=== PATIENT | female | born 1980 | race Caucasian/White ===

== ENCOUNTER 2017-10-21 22:49 | Emergency (ER) | payer SELFPAY ==
[~2017-10-21] VITALS: Ht 170.2 cm; Wt 55.6 kg
[2017-10-21] MEDS ORDERED: SODIUM CHLORIDE FLUSH 10ML SYR IVF ONE (23:30)
[2017-10-21] MEDS ORDERED: SODIUM CHLORIDE 0.9% 1,000ML IV ONE (23:30)
[2017-10-22] MEDS ORDERED: KETOROLAC 30 MG/1 ML ONE (00:33)
[2017-10-22 00:39] LABS: BASOPHILS # (AUTO) 0.03 x10^3/uL (0-0.1); BASOPHILS % (AUTO) 0 % (0-1); EOSINOPHILS % (AUTO) 2 % (1-7); LYMPHOCYTES # (AUTO) 1.45 x10^3/uL (1-3.4); LYMPHOCYTES % (AUTO) 11 % (22-44); MD NO; MEAN CORPUSCULAR HEMOGLOBIN 25.4 pg (27.0-34.8); MEAN CORPUSCULAR HGB CONC 32.8 g/dL (32.4-35.8); MEAN CORPUSCULAR VOLUME 77.4 fL (80-100); MEAN PLATELET VOLUME 7.1 fL (7.4-10.4); MONOCYTES % (AUTO) 8 % (2-9); NEUTROPHILS % (AUTO) 78 % (42-75); PLATELET COUNT 446 x10^3/uL (130-400); RED BLOOD COUNT 4.41 x10^6/uL (3.82-5.3); RED CELL DISTRIBUTION WIDTH 15.7 % (9.6-15.2)
[2017-10-22 00:51] LABS: ALANINE AMINOTRANSFERASE 19 U/L (12-78); ALBUMIN 2.6 g/dL (3.4-5.0); ANION GAP 9 mmol/L (5-15); CALCIUM 8.6 mg/dL (8.5-10.1); CHLORIDE 97 mmol/L (98-107); CREATININE 1.17 mg/dL (0.55-1.02)
[2017-10-22 00:56] LABS: ALKALINE PHOSPHATASE 142 U/L (45-117); BILIRUBIN,TOTAL 0.4 mg/dL (0.2-1.0); TOTAL PROTEIN 7.5 g/dL (6.4-8.2)
[2017-10-22] MEDS: KETOROLAC 30 MG/1 ML IVPush ONE ×2 (00:58→03:03)
[2017-10-22 01:07] LABS: CULTURE INDICATED? YES; MICROSCOPIC INDICATED
[2017-10-22] MEDS ORDERED: CEFTRIAXONE PMX 1GM/50ML 50 ML IVPB ONE (01:30)
[2017-10-22] MEDS ORDERED: CEFTRIAXONE PMX 1GM/50ML 50 ML ONE (01:36)
[2017-10-22 02:38] VITALS: BP 105/57
[2017-10-22] MEDS ORDERED: OXYC10TA6 PO (03:04)
== END 2017-10-22 03:27 | disposition home or self-care (01) ==
LOC: ED 23:59
DX: N39.0 Urinary tract infection, site not specified (principal); N13.2 Hydronephrosis with renal and ureteral calculous obstruction; N23 Unspecified renal colic
CPT/HCPCS: 36415; 74018; 74176; 76770; 80053; 81001; 83690; 84703; 85025; 87077; 87086; 96361; 96365; 96375; 99285; J0696; J1885; J7030; 87186

== ENCOUNTER 2017-10-25 10:36 | Inpatient (IN) | payer MEDICAID, OTHER ==
[~2017-10-25] VITALS: Ht 152.4 cm; Wt 65.0 kg
[~2017-10-25 10:36] MED LIST: OXYC10TA6 PO
[2017-10-25 11:34] LABS: BASOPHILS # (AUTO) 0.04 x10^3/uL (0-0.1); BASOPHILS % (AUTO) 0 % (0-1); EOSINOPHILS # (AUTO) 0.27 x10^3/uL (0-0.4); EOSINOPHILS % (AUTO) 2 % (1-7); LYMPHOCYTES # (AUTO) 1.69 x10^3/uL (1-3.4); LYMPHOCYTES % (AUTO) 14 % (22-44); MD NO; MEAN CORPUSCULAR HEMOGLOBIN 25.3 pg (27.0-34.8); MEAN CORPUSCULAR HGB CONC 33.2 g/dL (32.4-35.8); MEAN CORPUSCULAR VOLUME 76.4 fL (80-100); MEAN PLATELET VOLUME 6.9 fL (7.4-10.4); MONOCYTES # (AUTO) 1.11 x10^3/uL (0.2-0.8); MONOCYTES % (AUTO) 9 % (2-9); NEUTROPHILS # (AUTO) 9.17 x10^3/uL (1.8-6.8); NEUTROPHILS % (AUTO) 75 % (42-75); PLATELET COUNT 726 x10^3/uL (130-400); RED BLOOD COUNT 4.22 x10^6/uL (3.82-5.3)
[2017-10-25 11:39] LABS: ALANINE AMINOTRANSFERASE 29 U/L (12-78); ALBUMIN 2.6 g/dL (3.4-5.0); ANION GAP 7 mmol/L (5-15); CALCIUM 8.8 mg/dL (8.5-10.1); CHLORIDE 99 mmol/L (98-107); CREATININE 1.04 mg/dL (0.55-1.02)
[2017-10-25 11:42] LABS: ALKALINE PHOSPHATASE 174 U/L (45-117); BILIRUBIN,TOTAL 0.3 mg/dL (0.2-1.0); TOTAL PROTEIN 7.5 g/dL (6.4-8.2)
[2017-10-25] MEDS ORDERED: SODIUM CHLORIDE 0.9% 1,000ML IVBOLUS ONE (13:30)
[2017-10-25] MEDS ORDERED: KETOROLAC 30 MG/1 ML IVPush ONE (13:30)
[2017-10-25] MEDS ORDERED: SODIUM CHLORIDE FLUSH 10ML SYR IVF ONE (13:30)
[2017-10-25] MEDS ORDERED: ONDANSETRON 2MG/ML, 2ML IVPush ONE (13:30)
[2017-10-25] MEDS ORDERED: KETOROLAC 30 MG/1 ML ONE ×2 (13:44→16:29)
[2017-10-25] MEDS ORDERED: ONDANSETRON 2MG/ML, 2ML ONE ×2 (13:44→16:28)
[2017-10-25 14:51] LABS: CULTURE INDICATED? YES; MICROSCOPIC INDICATED
[2017-10-25] MEDS ORDERED: CEFTRIAXONE PMX 1GM/50ML 50 ML IVPB ONE (15:00)
[2017-10-25] MEDS ORDERED: CEFTRIAXONE 1,000 MG in SODIUM CHLORIDE 0.9% 50 ML IVPB ONE (15:00)
[2017-10-25] MEDS ORDERED: CEFTRIAXONE PMX 1GM/50ML 50 ML ONE (15:08)
[2017-10-25 15:15] LABS: HCG UR SG 1.015 (1.003-1.030)
[2017-10-25] MEDS ORDERED: MIDAZOLAM 1 MG/ML, 2ML ONE (15:37)
[2017-10-25] MEDS ORDERED: FENTANYL PF 250 MCG/5ML ONE (15:37)
[2017-10-25] MEDS ORDERED: PROPOFOL 10 MG/ML, 20ML ONE (15:38)
[2017-10-25] MEDS ORDERED: ROCURONIUM 10 MG/ML,10ML ONE (15:39)
[2017-10-25] MEDS ORDERED: NEOSTIGMINE 1 MG/ML, 10ML ONE (15:40)
[2017-10-25] MEDS ORDERED: SODIUM CHLORIDE 0.9% PF 10ML ONE (15:41)
[2017-10-25] MEDS ORDERED: CEFAZOLIN 1,000 MG ONE ×2 (15:41)
[2017-10-25] MEDS ORDERED: SUCCINYLCHOLINE 20 MG/ML, 10ML ONE (15:43)
[2017-10-25] MEDS ORDERED: ONDANSETRON 2MG/ML, 2ML IVPush PRN ×2 (16:00)
[2017-10-25] MEDS ORDERED: HYDROmorphone 1 MG/ML, 1ML IV PRN (16:00)
[2017-10-25] MEDS ORDERED: OXYcodone 5 MG/5 ML ORAL.SOL UDC PO PRN (16:00)
[2017-10-25] MEDS ORDERED: POLYETHYLENE GLYCOL 17 GM PACKET PO PRN (16:00)
[2017-10-25] MEDS ORDERED: ACETAMINOPHEN 325 MG TABLET PO PRN (16:00)
[2017-10-25] MEDS ORDERED: LABETALOL 5MG/ML, 20ML IV PRN (16:00)
[2017-10-25] MEDS ORDERED: morphine SULFATE 10 MG/ML, 1ML IV PRN (16:00)
[2017-10-25] MEDS ORDERED: PROMETHAZINE 25 MG/ML, 1ML IV PRN (16:00)
[2017-10-25] MEDS ORDERED: hydrALAzine 20 MG/ML, 1ML IVPush PRN (16:00)
[2017-10-25] MEDS ORDERED: PROMETHAZINE 12.5 MG SUPP PR PRN (16:00)
[2017-10-25] MEDS ORDERED: morphine SULFATE 10 MG/ML, 1ML IVPush PRN (16:00)
[2017-10-25] MEDS ORDERED: hydrALAzine 20 MG/ML, 1ML IV PRN (16:00)
[2017-10-25] MEDS ORDERED: MEPERIDINE/PF 25MG/0.5ML IVPush PRN (16:00)
[2017-10-25] MEDS ORDERED: OMNIPAQUE 350 MG/ML, 50 ML BOTTLE IV ONE (16:10)
[2017-10-25] MEDS ORDERED: CEFTRIAXONE 1,000 MG ONE (16:18)
[2017-10-25] MEDS ORDERED: DEXAMETHASONE 4 MG/ML, 1ML ONE ×2 (16:28)
[2017-10-25] MEDS ORDERED: OMNIPAQUE 350 MG/ML, 50 ML BOTTLE INJ ONE (16:36)
[2017-10-25] MEDS ORDERED: ACETAMINOPHEN 650 MG/20.3 ML UDC ONE (16:52)
[2017-10-25] MEDS ORDERED: FENTANYL PF 100 MCG/2ML ONE (16:52)
[2017-10-25] MEDS ORDERED: PROMETHAZINE 25 MG/ML, 1ML ONE (16:52)
[2017-10-25] MEDS ORDERED: OXYcodone 5 MG/5 ML ORAL.SOL UDC ONE (16:53)
[2017-10-25] MEDS ORDERED: ACETAMINOPHEN 325 MG TABLET ONE (16:53)
[2017-10-25] MEDS: SODIUM CHLORIDE 0.9% 1,000 ML IV SCH ×2 (17:00→23:46)
[2017-10-25] MEDS ORDERED: CEFTRIAXONE 2 GM in SODIUM CHLORIDE 0.9% 50 ML IV SCH (17:00)
[2017-10-25] MEDS: FENTANYL PF 100 MCG/2ML IV PRN ×2 (17:07→17:13)
[2017-10-25 22:05] VITALS: BP 98/45
[2017-10-25] MEDS: HYDROcodone/APAP 5/325 TABLET PO PRN (22:29)
[2017-10-26] VITALS: BP 98/60
[2017-10-26 03:54] VITALS: BP 95/61
[2017-10-26] MEDS: SODIUM CHLORIDE 0.9% 1,000 ML IV SCH ×2 (05:48→14:52)
[2017-10-26] MEDS: HYDROcodone/APAP 5/325 TABLET PO PRN ×3 (05:48→14:52)
[2017-10-26 05:54] LABS: CHLORIDE 108 mmol/L (98-107)
[2017-10-26 05:57] LABS: BASOPHILS % (AUTO) 0 % (0-1); EOSINOPHILS # (AUTO) 0.01 x10^3/uL (0-0.4); EOSINOPHILS % (AUTO) 0 % (1-7); LYMPHOCYTES # (AUTO) 0.88 x10^3/uL (1-3.4); LYMPHOCYTES % (AUTO) 12 % (22-44); MD NO; MEAN CORPUSCULAR HEMOGLOBIN 25.5 pg (27.0-34.8); MEAN CORPUSCULAR VOLUME 77.3 fL (80-100); MEAN PLATELET VOLUME 7.1 fL (7.4-10.4); MONOCYTES # (AUTO) 0.28 x10^3/uL (0.2-0.8); MONOCYTES % (AUTO) 4 % (2-9); NEUTROPHILS # (AUTO) 6.42 x10^3/uL (1.8-6.8); NEUTROPHILS % (AUTO) 85 % (42-75); PLATELET COUNT 581 x10^3/uL (130-400); RED BLOOD COUNT 3.64 x10^6/uL (3.82-5.3); RED CELL DISTRIBUTION WIDTH 15.7 % (9.6-15.2)
[2017-10-26 06:07] LABS: % IRON SATURATION 6 % (20-55); ALANINE AMINOTRANSFERASE 36 U/L (12-78); ALBUMIN 2.3 g/dL (3.4-5.0); ALKALINE PHOSPHATASE 171 U/L (45-117); ANION GAP 7 mmol/L (5-15); BILIRUBIN,TOTAL 0.1 mg/dL (0.2-1.0); CREATININE 0.81 mg/dL (0.55-1.02); IRON LEVEL 13 mcg/dL (50-170); TOTAL IRON BINDING CAPACITY 216 mcg/dL (250-450); TOTAL PROTEIN 6.7 g/dL (6.4-8.2)
[2017-10-26 07:27] VITALS: BP 94/54
[2017-10-26 12:17] VITALS: BP 105/52
[2017-10-26] MEDS ORDERED: OXYcodone/APAP 5/325MG TABLET PO PRN (17:30)
[2017-10-26] MEDS: FERROUS SULFATE 325 MG TABLET PO SCH (18:26)
[2017-10-26] MEDS: CEFTRIAXONE 2 GM in DEXTROSE 5% 50 ML IV SCH (18:26)
[2017-10-26 18:33] VITALS: BP 95/57
[2017-10-26] MEDS: OXYcodone IR 5MG TABLET PO PRN (22:55)
[2017-10-26] MEDS ORDERED: ACYCLOVIR 200 MG CAPSULE PO SCH ×2 (23:00→23:30)
[2017-10-26] MEDS: ACYCLOVIR 400 MG TABLET PO SCH (23:39)
[2017-10-27] MEDS: SODIUM CHLORIDE 0.9% 1,000 ML IV SCH ×3 (00:49→09:00)
[2017-10-27 01:40] VITALS: BP 101/62
[2017-10-27] MEDS: OXYcodone IR 5MG TABLET PO PRN ×2 (05:47→11:54)
[2017-10-27] MEDS: ACYCLOVIR 400 MG TABLET PO SCH ×2 (05:47→10:00)
[2017-10-27 06:43] VITALS: BP 106/64
[2017-10-27] MEDS: FERROUS SULFATE 325 MG TABLET PO SCH ×2 (10:00→12:00)
[2017-10-27] MEDS: CEFTRIAXONE 2 GM in DEXTROSE 5% 50 ML IV SCH (10:46)
[2017-10-27] MEDS ORDERED: CIPR500T87 PO (11:11)
[2017-10-27] MEDS ORDERED: OXYC5TAB3 PO (11:11)
[2017-10-27] MEDS ORDERED: FERR-51 PO (11:11)
[2017-10-27 13:14] VITALS: BP 106/68
== END 2017-10-27 13:30 | disposition home or self-care (01) | DRG 853 ==
LOC: ED 13:35 → EDIP 14:57 → OBSVTOIN 15:38 → 4NOR 17:54
PROVIDERS: ADMIT Internal Medicine; ATTEND Internal Medicine
PROC: BT1F1ZZ Fluoroscopy of Left Kidney, Ureter and Bladder using Low Osmolar Contrast (ICD-10-PCS; 2017-10-25)
PROC: 0T7B8DZ Dilation of Bladder with Intraluminal Device, Via Natural or Artificial Opening Endoscopic (ICD-10-PCS; principal; 2017-10-25 15:30)
DX: A41.9 Sepsis, unspecified organism (principal); N17.0 Acute kidney failure with tubular necrosis; N13.6 Pyonephrosis; N20.2 Calculus of kidney with calculus of ureter; D50.9 Iron deficiency anemia, unspecified; D53.9 Nutritional anemia, unspecified; B96.20 Unspecified Escherichia coli [E. coli] as the cause of diseases classified elsewhere; Z80.49 Family history of malignant neoplasm of other genital organs; Z80.52 Family history of malignant neoplasm of bladder; Z87.442 Personal history of urinary calculi; Z87.891 Personal history of nicotine dependence; Z88.1 Allergy status to other antibiotic agents
CPT/HCPCS: 36415; 74018; 74420; 76700; 80053; 81001; 81025; 83540; 83550; 83735; 84100; 85025; 87040; 87086; 96361; 96365; 96375; J0690; J0696; J1100; J1885; J2250; J2405; J2704; J2710; J3010; Q9967; C1758; C1769; C2617; G0378; J0330; J2270; J7030

== ENCOUNTER 2017-11-29 20:25 | Emergency (ER) | payer MEDICAID, OTHER ==
[~2017-11-29] VITALS: Ht 170.2 cm; Wt 58.2 kg
[~2017-11-29 20:25] MED LIST changes: +CIPR500T87 PO; +FERR-51 PO; +OXYC5TAB3 PO
[2017-11-29] MEDS ORDERED: MORPHINE SULFATE 4 MG/ML, 1ML ONE (21:49)
[2017-11-29] MEDS ORDERED: METOCLOPRAMIDE 5 MG/ML, 2ML ONE (21:49)
[2017-11-29] MEDS ORDERED: SODIUM CHLORIDE FLUSH 10ML SYR IVF ONE (22:00)
[2017-11-29] MEDS ORDERED: SODIUM CHLORIDE 0.9% 1,000ML IVBOLUS ONE (22:00)
[2017-11-29] MEDS ORDERED: METOCLOPRAMIDE 5 MG/ML, 2ML IVPush ONE (22:00)
[2017-11-29] MEDS ORDERED: MORPHINE SULFATE 4 MG/ML, 1ML IVPush PRN (22:00)
[2017-11-29 22:01] LABS: BASOPHILS # (AUTO) 0.03 x10^3/uL (0-0.1); BASOPHILS % (AUTO) 0 % (0-1); EOSINOPHILS # (AUTO) 0.17 x10^3/uL (0-0.4); EOSINOPHILS % (AUTO) 1 % (1-7); LYMPHOCYTES # (AUTO) 1.35 x10^3/uL (1-3.4); LYMPHOCYTES % (AUTO) 9 % (22-44); MD NO; MEAN CORPUSCULAR HEMOGLOBIN 25.7 pg (27.0-34.8); MEAN CORPUSCULAR VOLUME 77.9 fL (80-100); MONOCYTES # (AUTO) 0.43 x10^3/uL (0.2-0.8); MONOCYTES % (AUTO) 3 % (2-9); NEUTROPHILS # (AUTO) 13.87 x10^3/uL (1.8-6.8); NEUTROPHILS % (AUTO) 88 % (42-75); PLATELET COUNT 376 x10^3/uL (130-400); RED BLOOD COUNT 4.44 x10^6/uL (3.82-5.3); RED CELL DISTRIBUTION WIDTH 18.7 % (9.6-15.2)
[2017-11-29 22:14] LABS: ALANINE AMINOTRANSFERASE 28 U/L (12-78); ALBUMIN 3.2 g/dL (3.4-5.0); ANION GAP 6 mmol/L (5-15); CALCIUM 8.3 mg/dL (8.5-10.1); CHLORIDE 104 mmol/L (98-107); CREATININE 0.71 mg/dL (0.55-1.02)
[2017-11-29 22:18] LABS: ALKALINE PHOSPHATASE 80 U/L (45-117); BILIRUBIN,TOTAL 0.3 mg/dL (0.2-1.0); TOTAL PROTEIN 7.2 g/dL (6.4-8.2)
[2017-11-29] MEDS ORDERED: DEXAMETHASONE 4 MG/ML, 1ML IVPush ONE (22:30)
[2017-11-29] MEDS ORDERED: DEXAMETHASONE 4 MG/ML, 5ML ONE (22:40)
[2017-11-29] MEDS ORDERED: KETOROLAC 30 MG/1 ML ONE (22:49)
[2017-11-29] MEDS ORDERED: KETOROLAC 60 MG/2 ML IVPush ONE (23:00)
[2017-11-29 23:39] LABS: MICROSCOPIC AUTO
[2017-11-29 23:56] LABS: CULTURE INDICATED? YES
[2017-11-30] MEDS ORDERED: OXYcodone/APAP 5/325MG TABLET ONE (00:46)
[2017-11-30] MEDS ORDERED: CEFTRIAXONE PMX 2GM/50ML 50 ML IV SCH (01:00)
[2017-11-30] MEDS ORDERED: OXYcodone/APAP 5/325MG TABLET PO ONE (01:00)
[2017-11-30 01:41] VITALS: BP 111/71
== END 2017-11-30 01:43 | disposition left against medical advice (07) ==
LOC: ED 22:24
DX: N20.1 Calculus of ureter (principal); N11.1 Chronic obstructive pyelonephritis; R31.9 Hematuria, unspecified; N10 Acute pyelonephritis; J02.0 Streptococcal pharyngitis; F17.210 Nicotine dependence, cigarettes, uncomplicated
CPT/HCPCS: 36415; 74176; 80053; 81001; 83690; 84703; 85025; 87077; 87086; 87147; 87186; 87880; 96361; 96365; 96375; 99285; J0696; J1100; J1885; J2765; J7030

== ENCOUNTER 2017-12-01 01:43 | Emergency (ER) | payer MEDICAID ==
[~2017-12-01] VITALS: Ht 170.2 cm; Wt 57.7 kg
[2017-12-01] MEDS ORDERED: ZIPRASIDONE 20 MG INJ IM ONE (02:00)
[2017-12-01 03:00] LABS: CULTURE INDICATED? YES; MICROSCOPIC INDICATED
[2017-12-01 03:07] LABS: BASOPHILS # (AUTO) 0.04 x10^3/uL (0-0.1); BASOPHILS % (AUTO) 0 % (0-1); EOSINOPHILS # (AUTO) 0.08 x10^3/uL (0-0.4); EOSINOPHILS % (AUTO) 1 % (1-7); LYMPHOCYTES # (AUTO) 2.12 x10^3/uL (1-3.4); LYMPHOCYTES % (AUTO) 14 % (22-44); MD NO; MEAN CORPUSCULAR HEMOGLOBIN 25.2 pg (27.0-34.8); MEAN CORPUSCULAR HGB CONC 32.2 g/dL (32.4-35.8); MEAN CORPUSCULAR VOLUME 78.1 fL (80-100); MEAN PLATELET VOLUME 7.1 fL (7.4-10.4); MONOCYTES # (AUTO) 0.94 x10^3/uL (0.2-0.8); MONOCYTES % (AUTO) 6 % (2-9); NEUTROPHILS # (AUTO) 12.14 x10^3/uL (1.8-6.8); NEUTROPHILS % (AUTO) 79 % (42-75); PLATELET COUNT 381 x10^3/uL (130-400); RED BLOOD COUNT 4.09 x10^6/uL (3.82-5.3); RED CELL DISTRIBUTION WIDTH 18.6 % (9.6-15.2)
[2017-12-01 03:15] LABS: ANION GAP 9 mmol/L (5-15); CALCIUM 8.4 mg/dL (8.5-10.1); CHLORIDE 108 mmol/L (98-107); CREATININE 0.71 mg/dL (0.55-1.02)
[2017-12-01 04:35] VITALS: BP 108/76
[2017-12-01 04:35] LABS: CULTURE INDICATED? YES; MICROSCOPIC INDICATED
== END 2017-12-01 05:18 | disposition left against medical advice (07) ==
LOC: ED 04:07
DX: R10.31 Right lower quadrant pain (principal); R10.2 Pelvic and perineal pain; R10.32 Left lower quadrant pain; Z87.442 Personal history of urinary calculi; Z88.0 Allergy status to penicillin; Z88.5 Allergy status to narcotic agent
CPT/HCPCS: 36415; 76770; 80048; 81001; 82040; 84703; 85025; 87086; 99285